=== PATIENT | female | born 1995 ===

== ENCOUNTER → 2016-04-02 | Outpatient (CLI) | payer OTHER ==
--- NOTE | 2016-04-02 11:10 | DIAGNOSTIC IMAGING REPORT ---
RIGHT FEMUR 5 VIEWS CLINICAL HISTORY: Right hip pain. FINDINGS: AP, lateral, frog-leg, internal rotated, and externally rotated views of the right hip are compared to right hip radiographs dated 05/13/2015 and correlated with MRI of the right hip dated 05/15/2015. The skeletal structures are well mineralized. There is mild cortical thickening and irregularity seen involving the medial aspect of the proximal femoral metaphysis, best seen on the externally rotated view. This is at the same location as the marrow edema seen by MRI and may represent a mild stress reaction/stress fracture. No clear fracture line is identified. The remainder of the femur is normal in appearance. Moderate irregularity along the acetabular roof is unchanged. The knee joint is normal as visualized. The soft tissues of the thigh are within normal limits. IMPRESSION: 1. There is minimal cortical irregularity/thickening seen in the proximal femur as above. This may represent a stress reaction/stress fracture when correlated with the 05/15/2015 MRI. 2. The remainder of the femur is normal in appearance. Electronically signed by: Luis Felipe Macias M.D. 04/02/2016 11:08 AM Dictated Date/Time: 04/02/2016 11:04 AM
== END | disposition home or self-care (01) ==
LOC: C.RDSM 12:23
PROVIDERS: ATTEND Internal Medicine
DX: M79.651 Pain in right thigh (principal); R93.7 Abnormal findings on diagnostic imaging of other parts of musculoskeletal system

== ENCOUNTER → 2016-11-11 | Outpatient (CLI) | payer OTHER ==
--- NOTE | 2016-11-11 13:59 | DIAGNOSTIC IMAGING REPORT ---
RIGHT TIBIA/FIBULA 5 VIEWS CLINICAL HISTORY: Right lower leg pain. COMPARISON: None. DISCUSSION: No fractures or dislocations are visualized. There are no areas of pathologic periostitis. IMPRESSION: No fractures identified on conventional radiographic imaging. Electronically signed by: Leobardo Dias M.D. 11/11/2016 1:57 PM Dictated Date/Time: 11/11/2016 1:57 PM
== END | disposition home or self-care (01) ==
LOC: C.RDSM 13:26
PROVIDERS: ATTEND Internal Medicine
DX: M79.604 Pain in right leg (principal)

== ENCOUNTER → 2016-11-17 | Outpatient (CLI) | payer OTHER ==
--- NOTE | 2016-11-18 13:29 | DIAGNOSTIC IMAGING REPORT ---
MRI OF RIGHT LOWER LEG WITHOUT CONTRAST CLINICAL HISTORY: Right calf pain. Runner. COMPARISON STUDY: Right tibia and fibula radiographs November 11, 2016. TECHNIQUE: Utilizing a 1.5 Nichelle magnet, multiplanar, multiecho imaging of the right lower leg was performed without intravenous contrast. FINDINGS: A marker was placed on the skin at site of maximal pain. This overlies the medial aspect of the distal shaft of the right tibia. There is minimal periosteal edema with possible subtle marrow edema at this level. No fracture line is identified. No additional areas of periosteal edema are noted. The musculature of the right lower leg is normal. Specifically, no hematoma or other abnormalities identified. The right fibula is within normal limits. IMPRESSION: Minimal periosteal edema along the medial aspect of the distal shaft of the right tibia at site of maximal pain with possible subtle marrow edema. The findings suggest a grade 1/II stress injury. No fracture identified. Electronically signed by: Houston Lawson M.D. 11/18/2016 1:27 PM Dictated Date/Time: 11/17/2016 8:24 PM
== END | disposition home or self-care (01) ==
LOC: C.MRI 19:11
PROVIDERS: ATTEND Internal Medicine
DX: M79.604 Pain in right leg (principal)

== ENCOUNTER → 2017-06-08 | Outpatient (CLI) | payer OTHER ==
--- NOTE | 2017-06-08 12:21 | DIAGNOSTIC IMAGING REPORT ---
PELVIS 1 OR 2 VIEWS CLINICAL HISTORY: 21 years-old Female presenting with PELVIC PAIN. TECHNIQUE: Single frontal view of the pelvis was obtained. COMPARISON: None. FINDINGS: Skeletally immature patient with normal-appearing iliac crest epiphyses. No acute fracture or malalignment. No radiographic soft tissue abnormality. Marked stool burden in the rectum. IMPRESSION: 1. No acute osseous injury. 2. Marked stool burden in the rectum. Recommend disimpaction. Electronically signed by: Ming Kingston M.D. 06/08/2017 12:20 PM Dictated Date/Time: 06/08/2017 12:19 PM
== END | disposition home or self-care (01) ==
LOC: C.RDSM 14:47
PROVIDERS: ATTEND Internal Medicine
DX: R68.89 Other general symptoms and signs (principal)